=== PATIENT | male | born 1975 | race Two or more races ===

== ENCOUNTER 2019-07-22 23:03 | Emergency (ER) | payer OTHER ==
--- NOTE | 2019-07-22 23:37 | ED ---
Lower Extremity - HPI Summary HPI Summary: Patient complains of pain and swelling to right knee status post fall playing basketball tonight. Denies any other pain, injury or symptoms. - History of Current Complaint Chief Complaint: EDExtremityLower Stated Complaint: KNEE PAIN PER PT Time Seen by Provider: 07/22/19 23:20 Hx Obtained From: Patient Mechanism Of Injury: Fall From A Standing Position Onset of Pain: Immediate Onset/Duration: Hours Severity Initially: Severe Severity Currently: Severe Pain Intensity: 8 Pain Scale Used: 0-10 Numeric Timing: Constant Location: Is Discrete @ Character Of Pain: Aching, Throbbing Associated Signs And Symptoms: Positive: Swelling Aggravating Factor(s): Standing, Ambulation, Movement Alleviating Factor(s): Rest Able to Bear Weight: No - Allergies/Home Medications Allergies/Adverse Reactions: Allergies Allergy/AdvReac Type Severity Reaction Status Date / Time No Known Allergies Allergy Verified 07/22/19 23:39 PMH/Surg Hx/FS Hx/Imm Hx Endocrine/Hematology History: Denies: Hx Anticoagulant Therapy Cardiovascular History: Denies: Hx Pacemaker/ICD History: Denies: Hx Dialysis Sensory History: Denies: Hx Eye Prosthesis Opthamlomology History: Denies: Hx Legally Blind EENT History: Denies: Hx Deafness Psychiatric History: Denies: Hx Autism Infectious Disease History: No Infectious Disease History: Denies: Traveled Outside the [place] in Last 30 Days - Family History Known Family History: Positive: Non-Contributory - Social History Alcohol Use: Occasionally Substance Use Type: Reports: None Smoking Status (MU): Never Smoked Tobacco Review of Systems Constitutional: Negative Eyes: Negative ENT: Negative Cardiovascular: Negative Respiratory: Negative Gastrointestinal: Negative Genitourinary: Negative Musculoskeletal: Other Skin: Negative Neurological/Mental Status: Negative Psychological: Normal All Other Systems Reviewed And Are Negative: Yes Physical Exam - Summary Physical Exam Summary: Dislocation of the right patella superiorly. Patient unable to extend right knee either secondary to pain or inability. Difficult to determine due to patient's refusal to attempt. Nontender. PMS intact distally. Triage Information Reviewed: Yes Vital Signs On Initial Exam: Initial Vitals Temp Pulse Resp BP Pulse Ox 97.9 F 122 22 137/99 98 07/22/19 23:08 07/22/19 23:08 07/22/19 23:08 07/22/19 23:08 07/22/19 23:08 Vital Signs Reviewed: Yes Appearance: Positive: Well-Appearing Skin: Positive: Warm Head/Face: Positive: Normal Head/Face Inspection Eyes: Positive: Normal Neck: Positive: Supple Respiratory/Lung Sounds: Positive: Clear to Auscultation Cardiovascular: Positive: Normal Abdomen Description: Positive: Nontender Musculoskeletal: Positive: Normal Neurological: Positive: Normal Psychiatric: Positive: Normal AVPU Assessment: Alert - [place] Coma Scale Best Eye Response: 4 - Spontaneous Best Motor Response: 6 - Obeys Commands Best Verbal Response: 5 - Oriented Coma Scale Total: 15 Procedures - Sedation Patient Received Moderate/Deep Sedation with Procedure: No Diagnostics - Vital Signs Vital Signs Temp Pulse Resp BP Pulse Ox 07/22/19 23:08 97.9 F 122 22 137/99 98 - Laboratory Lab Statement: Any lab studies that have been ordered have been reviewed, and results considered in the medical decision making process. Lower Extremity Course/Dx - Course Course Of Treatment: Patient complains of pain and swelling to right knee status post fall playing basketball tonight. Denies any other pain, injury or symptoms. Vital signs within normal limits. X-ray positive for dislocation of patella superiorly. Patient placed in knee immobilizer. Crutches. Follow up with her. - Diagnoses Provider Diagnoses: Right knee injury, Closed dislocation of right patella Discharge ED - Sign-Out/Discharge Documenting (check all that apply): Patient Departure - Discharge Plan Condition: Stable Disposition: HOME Prescriptions: Oxycodone HCl 5 mg PO Q6H 3 Days #12 tablet MDD 4 tabs Patient Education Materials: Patellar Dislocation (ED), Knee Immobilizer (ED) Referrals: Coleman Marks NP [Primary Care Provider] - Truong Ortiz MD [Medical Doctor] - Additional Instructions: No weightbearing on right leg. Alternate ibuprofen 600 mg with Tylenol 650 mg every 3 hours for pain and inflammation. Take oxycodone as directed if needed for severe pain. Ice 15 minutes at a time. Call clinic of orthopedics Dr. Ortiz tomorrow morning to arrange for further evaluation. Wear knee immobilizer until evaluated by orthopedics. - Billing Disposition and Condition Condition: STABLE Disposition: Home
[2019-07-22] MEDS ORDERED: Ondansetron INJ* 2 MG/ML VIAL IV ONE (23:57)
[2019-07-22] MEDS ORDERED: Morphine 4 MG/ML VIAL (1 ml) 4 MG/ML VIAL IV ONE (23:57)
[2019-07-22] MEDS ORDERED: Ketorolac INJ* 30 MG/ML 1 ML VIAL IV ONE (23:57)
[2019-07-23 00:35] VITALS: BP 143/97
== END 2019-07-23 00:32 | disposition home or self-care (01) ==
LOC: ED 23:03
DX: S83.004A Unspecified dislocation of right patella, initial encounter (principal); W18.30XA Fall on same level, unspecified, initial encounter; Y93.67 Activity, basketball; Y92.9 Unspecified place or not applicable
CPT/HCPCS: 96374; 96375; 99283; J1885; J2270; J2405

== ENCOUNTER 2019-08-06 07:06 | Day surgery (SDC) | payer OTHER ==
--- NOTE | 2019-08-04 10:59 | HP ---
HISTORY AND PHYSICAL: DATE OF ADMISSION: 08/06/19, [facility]. He will be coming in for surgical repair of the right patellar tendon. CHIEF COMPLAINT: Right knee pain and swelling and unable to do a leg lift. HISTORY OF PRESENT ILLNESS: The patient unfortunately was playing basketball on 07/22/19, and he thinks that he hurt the knee when he was landing, and subsequent to the injury, he was unable to straighten the right knee, difficulty walking on it, and giving way of the knee. He was seen and checked in the emergency room, x- rays were obtained, he has been placed in a knee immobilizer. No previous such knee injury, and he is a diabetic using some insulin. The plan is for right patellar tendon repair. PAST MEDICAL HISTORY: He has hypertension, hyperlipidemia, and type 2 diabetes. The patient has not had a heart attack. He does not suffer with chest pain. He does not smoke. No bronchitis or pneumonia. He does have high cholesterol with type 2 diabetes. No GI or problems. MEDICATIONS: Daily medications: 1. Farxiga 10 mg 1 in the morning. 2. Atorvastatin 80 mg 1 every other day. 3. He uses some insulin. 4. He has been using a nicotine patch transdermal type, 21 mg per 24 hours. 5. Metformin 750 mg 1 a day. 6. He uses a KwikPen for insulin injections with blood glucose restrictions. 7. He takes losartan 50 mg each day. ALLERGIES: No drug allergies. FAMILY HISTORY: Positive for diabetes and negative for cardiac cancer. SOCIAL HISTORY: [place] [facility]. He is studying at [place]. He has a walk-up apartment. REVIEW OF SYSTEMS: No neurologic problems. No dermatitis problems. No GI or problems. No cardiopulmonary problems. No history of hepatitis, AIDS, or blood transfusion. No cancers. PHYSICAL EXAMINATION GENERAL: Well nourished, well developed, not acutely distressed. He is limping markedly on the right side. EXTREMITIES: His right knee has marked anterior swelling and tenderness, and he is unable to do a leg raise on the right leg. The right knee is tender anteriorly and less tender medial and laterally. The MCL and LCL are stable. The Enedelia and posterior drawer are normal. The thigh and calf are soft and the foot pulse is intact. DIAGNOSTIC STUDIES/LAB DATA: The knee radiographs show patella dar. IMPRESSION: Right patellar tendon rupture. He has diabetes with some insulin requirements and the plan is for right knee patellar tendon repair. I made him a drawing showing the patellar tendon and drill holes planned through the patella for this repair and outlined the 6 months of rehabilitation. He will be able to weight bear as tolerated right away. He will be in a knee immobilizer for the first 6 weeks. [id number]/[facility] #: [id number] MIRZA
[~2019-08-06 07:06] MED LIST: Buffered Lidocaine 1% SYRIN* 1 ML/SYRINGE INTRADERM ONE; Lactated Ringers 1000 ML Bag* 1,000 ML IV SCH
[2019-08-06] MEDS ORDERED: ceFAZolin 1 GM ADVAN(*) 1 GM ADDV.VIAL IVPB ONE ×2 (07:43→11:17)
[2019-08-06] MEDS ORDERED: Buffered Lidocaine 1% SYRIN* 1 ML/SYRINGE INTRADERM ONE (07:43)
[2019-08-06] MEDS ORDERED: ceFAZolin 2 GM in NS PREMIX(*) 2 GM/100 ML BAG IVPB ONE (07:44)
[2019-08-06] MEDS ORDERED: Ondansetron INJ* 2 MG/ML VIAL IV PRN (08:02)
[2019-08-06] MEDS ORDERED: Naloxone* 0.4 MG/ML 1 ML VIAL IV PRN (08:02)
[2019-08-06] MEDS ORDERED: PROCHLORPERAZINE INJ 5 MG/ML 2 ML VIAL IV PRN (08:02)
[2019-08-06] MEDS ORDERED: Bupivacaine 0.5% W/EPI SDV* 30 ML VIAL ONE (08:26)
[2019-08-06] MEDS ORDERED: ROPIVACAINE 5 MG/ML 30 ML BTL (0.5%) ONE (08:57)
[2019-08-06] MEDS ORDERED: ceFAZolin 1 GM ADVAN(*) 1 GM in NS 0.9% 50 ML* 50 ML IVPB ONE (11:01)
[2019-08-06] MEDS ORDERED: HYDROmorphone INJ1* 1 MG/ML SYRINGE ONE (11:13)
[2019-08-06] MEDS ORDERED: oxyCODONE/Acetamin 5/325 MG* TAB ONE (11:20)
[2019-08-06] MEDS: HYDROmorphone INJ1* 1 MG/ML SYRINGE IV PRN ×3 (11:25→11:43)
[2019-08-06] MEDS ORDERED: Labetalol IV* 5 MG/ML 20 ML VIAL ONE (11:59)
[2019-08-06 13:04] VITALS: BP 148/95
--- NOTE | 2019-08-07 16:42 | OP ---
CC: [facility] * DATE OF OPERATION: 08/06/19 - [facility] DATE OF : 79 SURGICAL CARE: Right knee and thigh. SURGEON: Abhi Cid MD ADVERTISING SALES AGENT: PUJA Tobias was equal opportunity assistant. ANESTHESIOLOGIST: Dr. Javed. The anesthesiologist did a right adductor canal block for postoperative pain assistance and general anesthetic. PRE-OP DIAGNOSIS: Right patellar tendon rupture. POST-OP DIAGNOSIS: Right patellar tendon rupture. OPERATIVE PROCEDURE: Repair of the right patellar tendon. COMPLICATIONS: There were no complications. DRAINS: There were no drains. TOURNIQUET: Tourniquet control was utilized on the right thigh. BLOOD LOSS: 20 mL. REPLACEMENT: Crystalloid fluids. INDICATION: Complete rupture of the right patellar tendon. DESCRIPTION OF PROCEDURE: The patient was brought to the operating room and placed on the operating room table in a supine. The right knee was wrapped with a proximal thigh tourniquet and the right knee was given a preliminary chlorhexidine prep and then a final ChloraPrep from the tourniquet to the tips of the toes. After prepping, draping, and sealing off, we did our universal protocol timeout confirming John Levy and a plan for right patellar tendon repair. We all agreed and we proceeded that. The preoperative assessment showed that the MCL and LCL were stable. The Enedelia and posterior drawer were stable. The patient had a palpable defect between the patella and the tibial tubercle. The tourniquet was elevated to 275 and the anterior longitudinal skin incision was made from the patella to the mid patellar tendon. The skin and subcu divided and at this point it was immediately evident that there was a complete rupture of the patellar tendon and the medial retinaculum torn transversely in the lateral retinaculum also torn transversely. The flaps were elevated to gain the exposure necessary to do the case. The tendon rupture was at the inferior pole of the patella and just into the proximal patellar tendon. On the patella, the remaining soft tissues were elevated going medially and laterally from the midpoint of the distal pole of the patella, going 2 cm each direction to expose the patellar tip and these tissues were preserved throughout the case. The patellar surface was then cleaned with a bur to have a patellar surface that would be more inviting for re-attachment of the patellar tendon. We went through cortical bone and got down to nice bleeding bone. The patellar tendon was then sutured with Aranda/baseball sutures. Three fiber wires were utilized. One went down laterally across half the tendon and then back up in the mid tendon, the next went down laterally entirely across the tendon and back up the medial tendon, and the third went down the mid tendon medially and then back up on the medial tendon. The tendon was debrided prior to insertion of the sutures to get back to tendon without granulation tissue on the end of it. Once the sutures were in place, they were kept ready for repair. In the patella , we made three drill holes, one medial, one mid, and one lateral. The drill holes went into the surface that had brain prepared and came out proximal and anterior. On each of these drill holes, a pull-through suture was brought down from the proximal end of 0-Vicryl. A suture passer was utilized for these and these sutures were kept ready for the final repair. The lateral retinaculum was then repaired starting laterally. We put in for a [id number] #1 Vicryl sutures and the lateral retinaculum came together very nicely with the knee in extension. The knee was then irrigated with saline irrigation solution , and the medial and lateral gutters were checked, the anterior joint checked and all was clear. The lateral retinaculum was then repaired with 3 interrupted [id number] Vicryl sutures. The lateral retinaculum came together nicely. The 3 FiberWire sutures to each in lateral mid and medial were then pulled through the respective drill holes and the sutures were all pulled tight individually proximally to see that their anchoring was nice in the patellar tendon and the sutures were then tied in 2 knots. The medial knot was placed first keeping tension on the lateral 2 sutures and then the end of this suture was tied to the medial suture to complete the repair. The tissue on the patella that have been reflected proximally and medially and proximally and laterally was then brought back down over the repair and sutured with interrupted 0-Vicryl in [id number] fashion and one or two 3-0 Vicryl sutures. The area was irrigated. The patellar tendon repair was flushed with the distal pole of patella with the knee extended. The deep fascia and bursa closed with interrupted 3-0 Vicryl sutures. The same with the superficial subcu and then the skin was closed with srinath. The knee joint was infiltrated with 10 mL of Marcaine and the skin and subcu of the surgical region was infiltrated with 20 mL of Marcaine. The dressing was applied after washing and drying with Betadine soaked release sterile gauze, sterile Webril, cryotherapy cuff, ABD pads, further Webril and then a 6 inch Philip bandage loosely applied. Tourniquet was deflated and the patient was then then returned to the recovery room in stable and satisfactory condition, having tolerated procedure very well. [id number]/[facility] #: [id number] MIRZA
== END 2019-08-06 12:45 | disposition home or self-care (01) ==
LOC: OR 07:06
PROVIDERS: ATTEND Orthopaedic Surgery
DX: S76.111A Strain of right quadriceps muscle, fascia and tendon, initial encounter (principal); I10 Essential (primary) hypertension; E78.5 Hyperlipidemia, unspecified; E11.9 Type 2 diabetes mellitus without complications; Z79.4 Long term (current) use of insulin; Z79.84 Long term (current) use of oral hypoglycemic drugs; G89.18 Other acute postprocedural pain; X50.0XXA Overexertion from strenuous movement or load, initial encounter; Y93.67 Activity, basketball; Y92.310 Basketball court as the place of occurrence of the external cause
CPT/HCPCS: A9270-GY; J0690; J1170; J2795